=== PATIENT | female | born 1940 ===

== ENCOUNTER 2018-08-14 09:59 | Outpatient (CLI) | payer OTHER ==
[~2018-08-14] VITALS: Ht 121.9 cm; Wt 49.0 kg
== END 2018-08-14 10:15 | disposition home or self-care (01) ==
LOC: OFIC 805 09:59
DX: R42 Dizziness and giddiness (principal); H90.3 Sensorineural hearing loss, bilateral; H61.23 Impacted cerumen, bilateral

== ENCOUNTER 2018-11-13 09:47 | Outpatient (CLI) | payer OTHER ==
[~2018-11-13] VITALS: Ht 121.9 cm; Wt 49.0 kg
== END 2018-11-13 10:10 | disposition home or self-care (01) ==
LOC: OFIC 805 09:47
DX: H90.3 Sensorineural hearing loss, bilateral (principal); H61.23 Impacted cerumen, bilateral; H60.8X3 Other otitis externa, bilateral